=== PATIENT | male | born 1970 ===

== ENCOUNTER 2020-04-01 13:54 | Emergency (ER) | payer BC, OTHER ==
--- NOTE | 2020-04-01 14:59 | EDM.PDOC ---
ED HPI GENERAL MEDICAL PROBLEM - General Chief Complaint: Chest Pain Stated Complaint: SOB/COUGHING/WEAKNESS Time Seen by Provider: 04/01/20 14:19 - History of Present Illness INITIAL COMMENTS - FREE TEXT/NARRATIVE: History of present illness: Patient presents with his friend who he tested positive with at another facility for COVID-19. They are both concerned because they are starting to have some body aches and cough and fever no trouble breathing the patient's just wanted to get checked out. Review of systems: As per history of present illness and below otherwise all systems reviewed and negative. Past medical history: As per history of present illness and as reviewed below otherwise noncontributory. Surgical history: As per history of present illness and as reviewed below otherwise noncontributory. Social history: No reported history of drug or alcohol abuse. Family history: As per history of present illness and as reviewed below otherwise noncontributory. Physical exam: HEENT: Atraumatic, normocephalic, pupils reactive, negative for conjunctival pallor or scleral icterus, mucous membranes moist, throat clear, Lungs: Respiratory distress Heart: S1S2, regular, negative for clicks, rubs, or JVD. Abdomen: Soft, nondistended, nontender. Negative for masses or hepatosplenomegaly. Negative for costovertebral tenderness. Pelvis: Stable nontender. Genitourinary: Deferred. Rectal: Deferred. Extremities: Atraumatic, Neuro: Awake, alert, oriented. Cranial nerves II through XII unremarkable. Cerebellum unremarkable. Motor and sensory unremarkable throughout. Exam nonfocal. Diagnostics: [] Therapeutics: [] Impression: [] Plan: [] Definitive disposition and diagnosis as appropriate pending reevaluation and review of above. Chest Pain Score (Numeric/FACES): 4 - Related Data Allergies Allergy/AdvReac Type Severity Reaction Status Date / Time No Known Allergies Allergy Verified 04/01/20 14:18 Home Meds: Home Meds . [No Known Home Meds] 04/01/20 [History] Past Medical History - Past Health History Medical/Surgical History: Denies Medical/Surgical History - Infectious Disease History Infectious Disease History: Reports: None Social & Family History - Family History Family Medical History: Noncontributory - Tobacco Use Smoking Status *Q: Never Smoker - Caffeine Use Caffeine Use: Reports: Coffee - Recreational Drug Use Recreational Drug Use: No ED ROS GENERAL - Review of Systems Review Of Systems: See Below ED EXAM, GENERAL - Physical Exam Exam: See Below Course - Vital Signs Text/Narrative:: Vital signs were reviewed they were normal no respiratory distress on exam the patient's were instructed again that is positive and symptomatic COVID patient's the need to stay home and isolate themselves and not be presenting to the public. They should not seek medical care unless they are in respiratory distress they are not in respiratory distress the patient's then left prior to completion of service. Last Recorded V/S: Last Vital Signs Temp 36.6 C 04/01/20 14:18 Pulse 98 04/01/20 14:18 Resp 16 04/01/20 14:18 BP 126/80 04/01/20 14:18 Pulse Ox 98 04/01/20 14:18 Departure - Departure Time of Disposition: 14:59 Disposition: Eloped 07 Condition: Undetermined Clinical Impression: COVID-19 - Discharge Information *PRESCRIPTION DRUG MONITORING PROGRAM REVIEWED*: Not Applicable *COPY OF PRESCRIPTION DRUG MONITORING REPORT IN PATIENT JONN: Not Applicable Instructions: COVID-19 Frequently Asked Questions Referrals: PCP,Not In Area [Primary Care Provider] - Sepsis Event Note (ED) - Evaluation Sepsis Screening Result: No Definite Risk - Focused Exam Vital Signs: Vital Signs Temp Pulse Resp BP Pulse Ox 04/01/20 14:18 36.6 C 98 16 126/80 98
== END 2020-04-01 14:55 | disposition left against medical advice (07) ==
LOC: MW.ED 13:54
DX: U07.1 COVID-19 (principal)
CPT/HCPCS: 99282; 99283